=== PATIENT | female | born 1950 | race Caucasian/White ===

== ENCOUNTER → 2024-03-25 16:08 | Outpatient (REF) | payer MEDICARE, SELFPAY | LOC: MRI 3T 16:08 | PROVIDERS: ATTENDING PHYSICIAN Orthopaedic Surgery Orthopaedic Surgery of the Spine; FAMILY PHYSICIAN Family Medicine | DX: M48.062 Spinal stenosis, lumbar region with neurogenic claudication (principal); M43.16 Spondylolisthesis, lumbar region | CPT/HCPCS: 72148 ==